=== PATIENT | female | born 1980 | race African-American/Black ===

== ENCOUNTER 2023-04-10 12:22 | Emergency (ER) | payer MEDICAID ==
[~2023-04-10] VITALS: Ht 160 cm; Wt 65.0 kg
[2023-04-10 12:41] VITALS: BP 116/78; PULSE 83; RESP 18; TEMP 98.2
[2023-04-10 14:13] LABS: BASOPHILS % 1.2 % (0.0-2.0); EOSINOPHILS % 2.3 % (0.0-5.0); HEMATOCRIT. 43.9 % (36.0-48.0); HEMOGLOBIN. 14.9 g/dL (12.0-16.0); MEAN CORPUSCULAR HEMOGLOBIN 30.6 pg (28.0-32.0); MEAN CORPUSCULAR HGB CONC 33.9 g/dL (31.0-37.0); MEAN CORPUSCULAR VOLUME 90.4 fL (81.0-99.0); MEAN PLATELET VOLUME 7.7 fl (7.4-10.4); MONOCYTES % 10.4 % (2.0-8.0); NEUTROPHILS % 48.1 % (40.0-76.0); PLATELET 381 x1000/uL (130-400); RED BLOOD CELL COUNT 4.86 mill/uL (4.2-5.4); RED CELL DISTRIBUTION WIDTH 13.6 % (11.6-14.6); WHITE BLOOD COUNT 6.1 x1000/uL (4.5-11.0)
[2023-04-10 14:23] LABS: HCG SCREEN NEGATIVE; INR 0.9; PROTHROMBIN TIME 10.6 sec (9.6-11.0)
[2023-04-10 14:29] LABS: ALANINE AMINOTRANSFERASE 10 IU/L (10-49); ALBUMIN 4.9 g/dL (3.2-4.8); ASPARTATE AMINOTRANSFERASE 21 IU/L (<34); BILIRUBIN TOTAL 0.4 mg/dL (0.1-1.0); CALCIUM 9.7 mg/dL (8.7-10.4); CARBON DIOXIDE 26 mEq/L (21-32); CHLORIDE 104 mEq/L (98-107); CREATININE 1.2 mg/dL (0.6-1.0); GLUCOSE 91 mg/dL (70-105); POTASSIUM 3.5 mEq/L (3.5-5.1); PROTEIN TOTAL 8.2 g/dL (6.0-8.3); SODIUM 135 mEq/L (136-145); UREA NITROGEN BLOOD 17 mg/dL (9-23)
[2023-04-10 14:31] LABS: TROPONIN I HIGH SENSITIVITY < 4 ng/L (3.0-34)
[2023-04-10] MEDS ORDERED: TOPUD MT (17:10)
[2023-04-10] MEDS ORDERED: IBUP-1523 MT (17:10)
== END 2023-04-10 17:48 | disposition home or self-care (01) ==
LOC: ER 13:37
DX: S02.609A Fracture of mandible, unspecified, initial encounter for closed fracture (principal); Z98.890 Other specified postprocedural states; Z86.59 Personal history of other mental and behavioral disorders; W18.30XA Fall on same level, unspecified, initial encounter; Y93.89 Activity, other specified; Y92.511 Restaurant or cafe as the place of occurrence of the external cause; Y99.8 Other external cause status
CPT/HCPCS: 36415; 70486; 71045; 80053; 84484; 84703; 85025; 93005; 99285